=== PATIENT | male | born 1960 | race Caucasian/White ===

== ENCOUNTER 2017-09-19 05:22 | Emergency (ER) | payer BC ==
[2017-09-19] MEDS ORDERED: Ondansetron 4 MG/2 ML SDV IVPUSH ONE (05:48)
[2017-09-19] MEDS ORDERED: Sodium Chloride 0.9% 10 ML Syringe FLUSH PRN (05:48)
[2017-09-19] MEDS ORDERED: Sodium Chloride 0.9% 1,000 ML IV ONE (05:48)
[2017-09-19] MEDS ORDERED: Sodium Chloride 0.9% 2.5 ML Syringe FLUSH PRN (05:48)
[2017-09-19] MEDS ORDERED: Morphine 2 MG/ML Syringe IVPUSH ONE (05:48)
--- NOTE | 2017-09-19 05:52 | EDM.PDOC ---
<Nikkie Bond - Last Filed: 09/19/17 07:23> ED HPI GENERAL MEDICAL PROBLEM - General Chief Complaint: Abdominal Pain Stated Complaint: ABDOMINAL PAIN- POSSIBLY GALL BLADDER Time Seen by Provider: 09/19/17 05:28 - History of Present Illness INITIAL COMMENTS - FREE TEXT/NARRATIVE: HISTORY AND PHYSICAL: History of present illness: The patient is a 57-year-old male is only significant past medical history is of early Alzheimer's for which he is involved in a clinical trial but otherwise has no GI history and presents with episodic abdominal pain that goes back to . He had an episode of diffuse abdominal pain on and he thought it was mostly due to overeating and the symptoms seemed to improve spontaneously so he did not seek treatment. The patient had another episode in August and was seen at [facility] and had an x-ray and was given some Zofran and said he needed more follow-up and testing. He has an episode now that started last evening and he describes it as starting in his mid lower abdomen and radiating up the midline but his says he was complaining more of left mid abdominal pain. He did not specifically complain of right upper quadrant pain or right lower quadrant pain and he has had no abdominal surgical history. He has had no urinary complaints and no flank pain. He's had no fevers chills chest pain or shortness of breath but he did have some nausea and he took a Zofran that he had from his last ER visit which helped. He did not specifically take anything for the pain. He said he was doubled over with the pain in the car on the way over here and it has improved. It seems to come and go and is cramping like in character and he actually asked his if is felt like being in labor would feel like. He has no lumbar back pain and no upper respiratory symptoms. He states he had a normal bowel movement yesterday which was not diarrhea or constipation and not black or bloody Patient's said that they were told on the prior visit at [facility] this might be gallbladder problem and they seem to be very focused on that. He does not eat a very healthy diet but the discomfort is not this really associated with eating of fatty food per se. Review of systems: As per history of present illness and below otherwise all systems reviewed and negative. Past medical history: As per history of present illness and as reviewed below otherwise noncontributory. Surgical history: As per history of present illness and as reviewed below otherwise noncontributory. Social history: No reported history of drug or alcohol abuse. Family history: As per history of present illness and as reviewed below otherwise noncontributory. Physical exam: General: Well-developed well-nourished man who is nontoxic and vital signs are reviewed by me. He is lying supine in bed without any gross discomfort appreciated by me HEENT: Atraumatic, normocephalic, negative for conjunctival pallor or scleral icterus, mucous membranes moist, throat clear, neck supple, nontender, trachea midline. Lungs: Clear to auscultation, breath sounds equal bilaterally, chest nontender. Heart: S1S2, regular, negative for clicks, rubs, or JVD. Abdomen: Soft, nondistended, bowel sounds are hypoactive, there is tympany in the upper abdomen on percussion. There is diffuse tenderness more in the mid abdomen on palpation but does not localize right or left on my evaluation. Negative for masses or hepatosplenomegaly. Negative for costovertebral tenderness. Pelvis: Stable nontender. Genitourinary: Deferred. Rectal: Deferred. Extremities: Atraumatic, negative for cords or calf pain. Neurovascular unremarkable. Neuro: Awake, alert, oriented. Cranial nerves II through XII unremarkable. Cerebellum unremarkable. Motor and sensory unremarkable throughout. Exam nonfocal. Diagnostics: CBC CMP amylase lipase UA CT scan of the abdomen and pelvis Therapeutics: IV IV fluids morphine Zofran Dilaudid After the morphine the patient seemed to become more uncomfortable in a colicky- like fashion so Dilaudid was ordered. 0715: Case is endorsed to Dr. You to follow-up the CT scan and disposition the patient. Impression: Abdominal pain episodic Definitive disposition and diagnosis as appropriate pending reevaluation and review of above. Middle Abdomen Pain Score (Numeric/FACES): 10 - Related Data Allergies Allergy/AdvReac Type Severity Reaction Status Date / Time No Known Allergies Allergy Verified 09/19/17 05:41 Home Meds: Home Meds Hyoscyamine Sulfate [Levsin] 0.125 mg PO TID PRN #20 tablet 09/19/17 [Rx] Past Medical History - Past Health History Medical/Surgical History: Denies Medical/Surgical History - Infectious Disease History Infectious Disease History: Reports: Chicken Pox - Past Surgical History HEENT Surgical History: Reports: Tonsillectomy Social & Family History - Tobacco Use Smoking Status *Q: Never Smoker - Caffeine Use Caffeine Use: Reports: Coffee - Recreational Drug Use Recreational Drug Use: No ED ROS GENERAL - Review of Systems Review Of Systems: ROS reveals no pertinent complaints other than HPI. ED EXAM, GENERAL - Physical Exam Exam: See Below (See dictation) Course - Vital Signs Last Recorded V/S: Last Vital Signs Temp 97.3 F 09/19/17 05:32 Pulse 60 09/19/17 05:32 Resp 12 09/19/17 05:32 BP 172/96 H 09/19/17 05:32 Pulse Ox 98 09/19/17 05:32 - Orders/Labs/Meds Orders: Active Orders 24 hr Category Date Time Status Abdomen Pelvis w Cont [CT] Stat Exams 09/19/17 05:48 Taken UA W/MICROSCOPIC [URIN] Stat Lab 09/19/17 07:43 Received Sodium Chloride 0.9% [Saline Flush] Med 09/19/17 05:48 Active 10 ml FLUSH ASDIRECTED PRN Sodium Chloride 0.9% [Saline Flush] Med 09/19/17 05:48 Active 2.5 ml FLUSH ASDIRECTED PRN Saline Lock Insert [OM.PC] Stat Oth 09/19/17 05:47 Ordered Medication Orders Sodium Chloride (Saline Flush) 10 ml FLUSH ASDIRECTED PRN PRN Reason: Keep Vein Open Last Admin: 09/19/17 06:11 Dose: 10 ml Sodium Chloride (Saline Flush) 2.5 ml FLUSH ASDIRECTED PRN PRN Reason: Keep Vein Open Last Admin: 09/19/17 05:57 Dose: 2.5 ml Labs: Laboratory Tests 09/19/17 09/19/17 Range/Units 05:50 05:50 WBC 9.05 (4.0-11.0) K/uL RBC 5.01 (4.50-5.90) M/uL Hgb 15.5 (13.0-17.0) g/dL Hct 43.4 (38.0-50.0) % MCV 86.6 (80.0-98.0) fL MCH 30.9 (27.0-32.0) pg MCHC 35.7 (31.0-37.0) g/dL RDW Std Deviation 40.8 (28.0-62.0) fl RDW Coeff of Mer 13 (11.0-15.0) % Plt Count 242 (150-400) K/uL MPV 10.40 (7.40-12.00) fL Neut % (Auto) 76.3 (48.0-80.0) % Lymph % (Auto) 14.4 L (16.0-40.0) % Mcnairy % (Auto) 8.4 (0.0-15.0) % Eos % (Auto) 0.7 (0.0-7.0) % Baso % (Auto) 0.2 (0.0-1.5) % Neut # (Auto) 6.9 H (1.4-5.7) K/uL Lymph # (Auto) 1.3 (0.6-2.4) K/uL Mcnairy # (Auto) 0.8 (0.0-0.8) K/uL Eos # (Auto) 0.1 (0.0-0.7) K/uL Baso # (Auto) 0.0 (0.0-0.1) K/uL Nucleated RBC % 0.0 /100WBC Nucleated RBCs # 0 K/uL Sodium 140 (136-148) mmol/L Potassium 3.5 (3.5-5.1) mmol/L Chloride 103 (98-107) mmol/L Carbon Dioxide 24.8 (21.0-32.0) mmol/L BUN 16 (7.0-18.0) mg/dL Creatinine 1.0 (0.8-1.3) mg/dL Est Cr Clr Drug Dosing 86.18 mL/min Estimated GFR (MDRD) > 60.0 ml/min Glucose 126 H (74-106) mg/dL Calcium 8.8 (8.5-10.1) mg/dL Total Bilirubin 1.4 H (0.2-1.0) mg/dL AST 22 (15-37) IU/L ALT 30 (14-63) IU/L Alkaline Phosphatase 59 (46-116) U/L Total Protein 7.2 (6.4-8.2) g/dL Albumin 3.9 (3.4-5.0) g/dL Globulin 3.3 (2.0-3.5) g/dL Albumin/Globulin Ratio 1.2 L (1.3-2.8) Amylase 83 (25-115) U/L Lipase 131 (73-393) U/L Meds: Medications Generic Name Dose Route Start Last Admin Trade Name Freq PRN Reason Stop Dose Admin Sodium Chloride 10 ml 09/19/17 05:48 09/19/17 06:11 Saline Flush FLUSH 10 ml ASDIRECTED PRN Administration Keep Vein Open Sodium Chloride 2.5 ml 09/19/17 05:48 09/19/17 05:57 Saline Flush FLUSH 2.5 ml ASDIRECTED PRN Administration Keep Vein Open Discontinued Medications Generic Name Dose Route Start Last Admin Trade Name Freq PRN Reason Stop Dose Admin Hydromorphone HCl 1 mg 09/19/17 06:04 09/19/17 06:07 Dilaudid IVPUSH 09/19/17 06:05 1 mg ONETIME ONE Administration Sodium Chloride 1,000 mls @ 999 mls/hr 09/19/17 05:48 09/19/17 05:56 Normal Saline IV 09/19/17 06:48 999 mls/hr STAT ONE Administration Iopamidol 200 ml 09/19/17 07:22 09/19/17 07:23 Isovue Multipack-370 (76%) IVPUSH 09/19/17 07:23 100 ml ONETIME STA Administration Morphine Sulfate 4 mg 09/19/17 05:48 09/19/17 05:57 Morphine IVPUSH 09/19/17 05:49 4 mg ONETIME ONE Administration Ondansetron HCl 4 mg 09/19/17 05:48 09/19/17 05:56 Zofran IVPUSH 09/19/17 05:49 4 mg ONETIME ONE Administration Departure - Departure Disposition: Home, Self-Care 01 Clinical Impression: Cholelithiasis Abdominal pain Qualifiers: Abdominal location: unspecified location Qualified Code(s): R10.9 - Unspecified abdominal pain - Discharge Information Prescriptions: Hyoscyamine Sulfate [Levsin] 0.125 mg PO TID PRN #20 tablet PRN Reason: Pain Referrals: Leah Zuluaga NP [Primary Care Provider] - Brian Sequeira MD [Physician] - Forms: ED Department Discharge Additional Instructions: The following information is given to patients seen in the emergency department who are being discharged to home. This information is to outline your options for follow-up care. We provide all patients seen in our emergency department with a follow-up referral. The need for follow-up, as well as the timing and circumstances, are variable depending upon the specifics of your emergency department visit. If you don't have a primary care physician on staff, we will provide you with a referral. We always advise you to contact your personal physician following an emergency department visit to inform them of the circumstance of the visit and for follow-up with them and/or the need for any referrals to a consulting specialist. The emergency department will also refer you to a specialist when appropriate. This referral assures that you have the opportunity for follow-up care with a specialist. All of these measure are taken in an effort to provide you with optimal care, which includes your follow-up. Under all circumstances we always encourage you to contact your private physician who remains a resource for coordinating your care. When calling for follow-up care, please make the office aware that this follow-up is from your recent emergency room visit. If for any reason you are refused follow-up, please contact the [facility] Emergency Department at and asked to speak to the emergency department charge nurse. Take Levsin and Prilosec as directed, follow up with general surgery consultation. Return if symptoms worsen or change [facility] [address] [place] [address], [address] [place] [address] <Yoanna You - Last Filed: 09/19/17 08:04> ED HPI GENERAL MEDICAL PROBLEM - History of Present Illness INITIAL COMMENTS - FREE TEXT/NARRATIVE: Patient was signed out to me at [address] results. Patient's CT is read as normal except for the finding of cholelithiasis is no evidence of bile duct dilatation. Patient has a normal white count. Patient's upper abdomen is still mildly tender without rebound or guarding. I will give him a referral to general surgery until then I recommended he get trial of Prilosec for 2 weeks and I will prescribe him Levsin for cramping. Patient and his are comfortable with this plan and all questions have been answered. Departure - Departure Time of Disposition: 08:02 Condition: Good
[2017-09-19] MEDS ORDERED: HYDROmorphone 2 MG/ML SDV IVPUSH ONE (06:04)
[2017-09-19 06:31] LABS: CHLORIDE,CL 103 mmol/L (98-107); SODIUM,NA 140 mmol/L (136-148)
[2017-09-19] MEDS ORDERED: Iopamidol 755 MG/ML 200 ML Multipack Bottle IV ONE (07:22)
[2017-09-19] MEDS ORDERED: Iopamidol 755 MG/ML 200 ML Multipack Bottle IVPUSH STA (07:22)
[2017-09-19] MEDS ORDERED: Hyoscyamine 0.125 MG Tab.SL SL ONE (07:59)
--- NOTE | 2017-09-19 17:08 | CT ---
EXAM DATE: 09/19/17 PATIENT'S AGE: 57 Patient: BARBER STONE Facility: [place], [place] Site . Site : [id number] Study: CT Abdomen/Pelvis [id number]/12/2018 7:27:08 AM Ordering Physician: Varun Lundy Final Report: INDICATION: Nausea, left upper quadrant pain. TECHNIQUE: A CT volumetric acquisition was performed of the abdomen and pelvis during intravenous infusion of 100 cc of Isovue-370 nonionic intravenous contrast. FINDINGS: CT images demonstrate a normal appearance of the lung bases. There is no evidence of pleural or pericardial fluid. Within the abdomen the patient`s liver and spleen demonstrate normal size and uniform enhancement. There is no evidence of inflammation about the stomach. Stones are noted within a normal size gallbladder. There is no evidence of bile duct dilatation. The adrenal glands have normal morphology. The kidneys show normal uniform enhancement. There is no evidence of calculus, mass or hydronephrosis. The abdominal aorta appears normal. There is no evidence of retroperitoneal lymphadenopathy within the abdomen and pelvis. The small intestine and small bowel mesentery appear normal. There is no evidence of obstruction or acute inflammation within the colon. The prostate gland and urinary bladder appear normal. The ventral abdominal wall musculature appears intact. IMPRESSION: Cholelithiasis. Please note that all CT scans at this facility use dose modulation, iterative reconstruction, and/or weight-based dosing when appropriate to reduce radiation dose to as low as reasonably achievable. Dictated by Saturnino Vallecillo MD @ Sep 19 2017 7:28AM (Electronic Signature) Report Signed by Proxy. MTDD
== END 2017-09-19 08:31 | disposition home or self-care (01) ==
LOC: MW.ED 05:22
DX: K80.20 Calculus of gallbladder without cholecystitis without obstruction (principal)
CPT/HCPCS: 74177; 80053; 81001; 82150; 83690; 85025; 96361; 96374; 96375; 99284; A9270; J1170; J2270; J2405; J7040; Q9967

== ENCOUNTER 2017-09-29 06:11 | Day surgery (SDC) | payer BC ==
[~2017-09-29 06:11] MED LIST: Lactated Ringers 1,000 ML IV SCH; cefOXitin 2 GM in Premix Bag 1 BAG IV ONE
--- NOTE | 2017-09-29 07:14 | PCM.PREANE ---
Preanesthetic Assessment - Procedure Proposed Procedure: Laparoscopic cholecystectomy - Anesthesia/Transfusion/Family Hx Anesthesia History: Prior Anesthesia Without Reaction Transfusion History: No Prior Transfusion(s) Intubation History: Unknown Additional History: Participant in a national Alzheimers study; family genetics monitoring - he has lost father and siblings to Alzheimers. Once per month he is given a placebo/ study drug and has blood drawn. No restriction regarding anesthetic. - Review of Systems General: No Symptoms Pulmonary: No Symptoms Cardiovascular: No Symptoms Gastrointestinal: No Symptoms Neurological: No Symptoms Other: Reports: None - Physical Assessment NPO Status Date: 09/28/17 NPO Status Time: 20:00 O2 Sat by Pulse Oximetry: 98 Respiratory Rate: 16 Vital Signs: Last Vital Signs Temp 97.0 F 09/29/17 06:40 Pulse 98 09/29/17 06:40 Resp 16 09/29/17 06:40 BP 122/74 09/29/17 06:40 Pulse Ox 98 09/29/17 06:40 Height: 5 ft 10 in Weight: 201 lb ASA Class: 2 Mental Status: Alert & Oriented x3 Airway Class: Mallampati = 2 Dentition: Reports: Dentures (upper) Thyro-Mental Finger Breadths: 3 Mouth Opening Finger Breadths: 3 Lungs: Clear to Auscultation, Normal Respiratory Effort Cardiovascular: Regular Rate, No Murmurs - Allergies Allergies/Adverse Reactions: Allergies Allergy/AdvReac Type Severity Reaction Status Date / Time No Known Allergies Allergy Verified 09/26/17 10:57 - Blood Blood Available: No Product(s) Available: None - Anesthesia Plan Pre-Op Medication Ordered: None - Acknowledgements Anesthesia Type Planned: General Anesthesia (GETTA) Pt an Appropriate Candidate for the Planned Anesthesia: Yes Alternatives and Risks of Anesthesia Discussed w Pt/Guardian: Yes Pt/Guardian Understands and Agrees with Anesthesia Plan: Yes Additional Comments: present with interview and exam. Consent signed. Questions answered and discussion with anesthesia provider for case. PreAnesthesia Questionnaire - Past Health History Medical/Surgical History: Denies Medical/Surgical History HEENT History: Reports: Other (See Below) Other HEENT History: top denture Genitourinary History: Reports: None - Infectious Disease History Infectious Disease History: Reports: Chicken Pox - Past Surgical History Head Surgeries/Procedures: Reports: None HEENT Surgical History: Reports: Tonsillectomy Male Surgical History: Reports: Vasectomy - SUBSTANCE USE Smoking Status *Q: Never Smoker Recreational Drug Use History: No - HOME MEDS Home Medications: Home Meds Hyoscyamine Sulfate [Levsin] 0.125 mg PO TID PRN #20 tablet 09/19/17 [Rx] - CURRENT (IN HOUSE) MEDS Current Meds: Current Medications Lactated Ringer's (Ringers, Lactated) 1,000 mls @ 125 mls/hr IV ASDIRECTED ON LICENSE OF [facility] Last Admin: 09/29/17 06:42 Dose: 125 mls/hr Discontinued Medications Cefoxitin Sodium 2 gm/ Premix 50 mls @ 100 mls/hr IV ONETIME ONE Stop: 09/29/17 06:29
[2017-09-29] MEDS ORDERED: fentaNYL 100 MCG/2 ML SDV ONE ×2 (07:21→08:27)
[2017-09-29] MEDS ORDERED: Midazolam 1 MG/ML 2 ML SDV ONE (07:21)
[2017-09-29] MEDS ORDERED: Propofol 200 MG/20 ML SDV ONE (07:21)
[2017-09-29] MEDS ORDERED: Glycopyrrolate 0.2 MG/ML SDV ONE (07:23)
[2017-09-29] MEDS ORDERED: Rocuronium 10 MG/ML 10 ML Syringe ONE (07:23)
[2017-09-29] MEDS ORDERED: ePHEDrine 50 MG/ML SDV ONE (07:23)
[2017-09-29] MEDS ORDERED: Neostigmine Methylsulfate 1 MG/ML 5 ML Syringe ONE (07:23)
[2017-09-29] MEDS ORDERED: Ondansetron 4 MG/2 ML SDV ONE (07:23)
[2017-09-29] MEDS ORDERED: Lidocaine 2% 5 ML SDV ONE (07:23)
[2017-09-29] MEDS ORDERED: ceFAZolin 1 GM Vial ONE ×2 (07:37→08:23)
[2017-09-29] MEDS ORDERED: Bupivacaine 0.25% 10 ML SDV ONE (07:37)
[2017-09-29] MEDS ORDERED: Bupivacaine 0.5% 10 ML SDV ONE (07:38)
[2017-09-29] MEDS ORDERED: cefOXitin 1 GM Vial ONE (08:23)
[2017-09-29] MEDS ORDERED: Dexamethasone 4 MG/ML 5 ML MDV ONE (08:24)
[2017-09-29] MEDS ORDERED: Acetaminophen/HYDROcodone 325-5 MG Tab PO PRN (09:24)
[2017-09-29] MEDS ORDERED: Morphine 10 MG/ML Syringe IVPUSH PRN (09:24)
[2017-09-29] MEDS ORDERED: Ondansetron 4 MG Tab.DIS PO PRN (09:25)
[2017-09-29] MEDS ORDERED: Acetaminophen/oxyCODONE 325-5 MG Tab PO PRN (09:25)
--- NOTE | 2017-09-29 09:27 | PCM.OPNOTE ---
- General Post-Op/Procedure Note Date of Surgery/Procedure: 09/29/17 Operative Procedure(s): Laparoscopic cholecystectomy Pre Op Diagnosis: Symptomatic cholelithiasis Post-Op Diagnosis: Symptomatic cholelithiasis with acute and chronic cholecystitis Anesthesia Technique: General ET Tube (ASA II) Primary Surgeon: Brian Sequeira Labor Operator: Wilfredo Kirk Fluid Replacement, Intraop: 1,000 Output, Urine Amount: 400 EBL in mLs: 5 Condition: Good Free Text/Narrative:: Dictation [id number] CPT CODE 23843
[2017-09-29] MEDS ORDERED: Lactated Ringers 1,000 ML IV SCH (09:30)
--- NOTE | 2017-09-29 10:19 | PCM.POSTAN ---
POST ANESTHESIA ASSESSMENT - MENTAL STATUS Mental Status: Alert, Oriented Free Text/Narrative:: Smooth wakeup and verbal to phase II. - RESPIRATORY Respiratory Status: Respiratory Rate WNL, Airway Patent, O2 Saturation Stable - CARDIOVASCULAR CV Status: Pulse Rate WNL, Blood Pressure Stable - GASTROINTESTINAL GI Status: No Symptoms - PAIN Pain Score: 2 - POST OP HYDRATION Hydration Status: Adequate & Stable
--- NOTE | 2017-09-29 12:12 | PCM48HPAN ---
Post Anesthesia Note - EVALUATION WITHIN 48HRS OF ANESTHETIC Vital Signs in Normal Range: Yes Patient Participated in Evaluation: Yes Respiratory Function Stable: Yes Airway Patent: Yes Cardiovascular Function Stable: Yes Hydration Status Stable: Yes Pain Control Satisfactory: Yes Nausea and Vomiting Control Satisfactory: Yes Mental Status Recovered: Yes Resp Rate: 15
--- NOTE | 2017-09-29 15:05 | OR ---
SURGEON: Brian Sequeira M.D. DATE OF PROCEDURE: 09/29/2017 OPERATION PERFORMED: Laparoscopic cholecystectomy. SENIOR DATASTAGE DEVELOPER: Dr. Wilfredo Kirk, PGY-3 ANESTHESIA: General endotracheal. PREOPERATIVE DIAGNOSIS: Symptomatic cholelithiasis. POSTOPERATIVE DIAGNOSIS: Cholelithiasis with cholecystitis. ESTIMATED BLOOD LOSS: 5 mL. INTRAOPERATIVE FLUID REPLACEMENT: 1000 mL of crystalloid. [employer] CLASSIFICATION: II. DESCRIPTION OF PROCEDURE: The patient was taken to the operating room and placed on the operating table in the supine position. Time-out was called for appropriate identification of the patient and procedure. Thigh-high TEDs and sequential compression boots were placed. Following satisfactory attainment of general endotracheal anesthesia, a Saravia catheter was placed in the patient's urinary bladder. The abdomen was prepped with DuraPrep solution. Sterile drapes were applied. The skin just below the umbilicus was infiltrated with 0.5% Marcaine solution. The skin incision was made and deepened through the subcutaneous tissue, obtaining hemostasis with the use of electrocautery. The Veress needle was introduced into the peritoneal cavity. Saline drop test was positive. Carbon dioxide pneumoperitoneum was established with the release set at 13 cm of water. Once we had a satisfactory pneumoperitoneum, 5-mm camera and port were placed through the infraumbilical incision. The patient was now positioned with his head down and rolled to the left. Under camera vision, 12-mm subxiphoid, 5-mm midclavicular, and 5-mm anterior axillary ports were placed. Each incision was preemptively infiltrated with 0.5% Marcaine solution before incision was made. Adhesions were taken down. The gallbladder was then grasped and more adhesions taken down from around the gallbladder. The cholecystohepatic triangle was dissected. Cystic duct was quite thickened. Nevertheless, we were able to obtain the appropriate critical view. Once that was accomplished, the cystic duct was multiply hemoclipped and divided with laparoscopic Metzenbaum scissor. The cystic artery was also dissected free and hemoclipped before division with laparoscopic Metzenbaum scissor. Once that was accomplished, the gallbladder was dissected away from its bed using electrocautery. Once the gallbladder was removed, this was placed in an Endopouch, which was secured intra-abdominally. The bed of the gallbladder was then inspected and irrigated with sterile saline solution. All fluid was aspirated. The right hemidiaphragm was then irrigated with 250 mL of saline containing 20 mL of 0.5% Marcaine solution. That solution was left in place. Under camera vision, the Endopouch containing gallbladder and 12-mm port were removed. Again under camera vision, the midclavicular and anterior axillary ports were removed and finally the infraumbilical camera and port were removed. The subxiphoid incision was inspected and the fascia reapproximated with a 0 Vicryl suture. The infraumbilical and subxiphoid incisions were closed in 2 layers approximating the subcutaneous tissue with 3-0 Polysorb and the skin with subcuticular 4-0 Monocryl. The anterior axillary and midclavicular incisions were closed with subcuticular 4-0 Monocryl. All incisions were Steri-Stripped and dressed with sterile Tegaderm pads. Sponge, needle, and instrument counts were all correct. The patient tolerated the procedure well. The Saravia catheter was removed. Following emergence from anesthesia and extubation, the patient was taken to recovery room in stable condition. DENI EISENBERG /[id number]
== END 2017-09-29 12:30 | disposition home or self-care (01) ==
LOC: MW.SDS 06:11
PROVIDERS: ATTEND Surgery
DX: K80.12 Calculus of gallbladder with acute and chronic cholecystitis without obstruction (principal); G30.9 Alzheimer's disease, unspecified; F02.80 Dementia in other diseases classified elsewhere, unspecified severity, without behavioral disturbance, psychotic disturbance, mood disturbance, and anxiety; Z98.52 Vasectomy status; Z90.89 Acquired absence of other organs
CPT/HCPCS: 47562; J0690; J0694; J1100; J2250; J2405; J3010; J7120; 88304; J2704